=== PATIENT | female | born 1950 | race Caucasian/White ===

== ENCOUNTER 2022-03-05 12:58 | Inpatient (IN) | payer MEDICARE, BC ==
[~2022-03-05] VITALS: Ht 152.4 cm; Wt 63.5 kg
--- NOTE | 2022-03-05 13:00 | NUR ---
Patient brought in by ambulance, A/O time 4, no distress noted. Right hand heplock 20 gauze .
[2022-03-05 13:23] LABS: HEMATOCRIT 36.9 % (31.2-41.9); MEAN CORPUSCULAR HEMOGLOBIN 30.7 uug (24.7-32.8); MEAN CORPUSCULAR VOLUME 91.1 fL (75.5-95.3); PLATELET COUNT (AUTO) 299 K/uL (179-408)
[2022-03-05] MEDS ORDERED: OXYC10TA59 PO (13:36)
[2022-03-05] MEDS ORDERED: CLON1TAB PO (13:36)
[2022-03-05 13:40] LABS: BILIRUBIN,DIRECT 0.1 mg/dL (0.0-0.2); BILIRUBIN,TOTAL 0.4 mg/dL (0.2-1.0); CREATININE 0.8 mg/dL (0.6-1.3); POTASSIUM 3.7 mmol/L (3.5-5.1); TOTAL PROTEIN, SERUM 6.6 g/dL (6.4-8.2)
[2022-03-05] MEDS ORDERED: OXYCODONE/APAP 5-325 MG TABLET PO ONE ×2 (16:45→22:45)
[2022-03-05] MEDS ORDERED: OXYCODONE/APAP 5-325 MG TABLET ONE ×2 (16:55→22:43)
--- NOTE | 2022-03-05 16:57 | NUR ---
Spoke to Jyothi at [facility], awaiting call back for update/follow up.
--- NOTE | 2022-03-05 19:25 | NUR ---
Report recieved from Kiana HOSKINS.
--- NOTE | 2022-03-05 21:01 | NUR ---
Spoke to Delivery Crew Member, Domenica who states no beds are available at this time and will call back if beds become available.
[2022-03-06] MEDS ORDERED: OXYCODONE/APAP 5-325 MG TABLET PO ONE ×2 (03:30→08:00)
[2022-03-06] MEDS ORDERED: OXYCODONE/APAP 5-325 MG TABLET ONE ×2 (03:43→08:01)
--- NOTE | 2022-03-06 04:18 | NUR ---
Cuco from [facility] called to inform that there are still not beds avaliable for patient to transfer.
--- NOTE | 2022-03-06 06:29 | NUR ---
Spoke to Irena HOSKINS from OR regarding patient's wishes to be transferred to have surgery at [facility]. She confirmed that she will inform Dr. Kaur of the patient's wishes and to cancel the surgrey for 1300 today.
--- NOTE | 2022-03-06 07:12 | NUR ---
Change of shift report given to Mallorie HOSKINS.
[2022-03-06] MEDS ORDERED: IV D5 1/2 NS 1000 ML 1,000 ML IV ONE (07:45)
[2022-03-06] MEDS ORDERED: HYDROCODONE/APAP 5-325MG TABLET PO ONE (08:00)
--- NOTE | 2022-03-06 08:38 | NUR ---
called [facility] and spoke to house shani [place]a, states there is no bed availiable at this time. will call me back with bed #
[2022-03-06] MEDS ORDERED: MORPHINE SULFATE 2 MG/1 ML DISP.SYRIN IV PRN (12:00)
[2022-03-06] MEDS ORDERED: ONDANSETRON 4 MG/2 ML VIAL IV PRN (12:00)
[2022-03-06] MEDS ORDERED: BUPIVACAINE 0.25% 30 ML VIAL ONE (12:07)
--- NOTE | 2022-03-06 12:10 | NUR ---
koch catheter inserted per orders, 14f, tolerated. draining clear yellow urine. pt resting comfortably in bed.
--- NOTE | 2022-03-06 12:34 | NUR ---
aprox 1220 patient was taken to OR by or nurses. pt has all her belongings with her.
[2022-03-06 13:10] LABS: *BILIRUBIN,URIN NEGATIVE (NEGATIVE); *BLOOD, URINE NEGATIVE (NEGATIVE); *CLARITY,URINE CLEAR (CLEAR); *COLOR,URINE YELLOW (YELLOW); *KETONES,URINE NEGATIVE (NEGATIVE); *UROBILINOGEN,URINE 0.2 E.U./dl (NORMAL); LEUKOCYTE ESTERASE ,URINE NEGATIVE (NEGATIVE); NITRITE, URINE NEGATIVE (NEGATIVE); PH,URINE 5.5 (5.0-8.0); UGLUCOSE TRACE (NEGATIVE)
[2022-03-06] MEDS ORDERED: FENTANYL CITRATE 100 MCG/2 ML AMPUL ONE (13:27)
[2022-03-06] MEDS ORDERED: MIDAZOLAM HCL 2 MG/2 ML VIAL ONE (13:27)
[2022-03-06] MEDS ORDERED: ROCURONIUM BROMIDE 50 MG/5 ML VIAL ONE (13:28)
[2022-03-06 14:14] LABS: BACTERIA,URINE NONE SEEN /HPF (NONE SEEN); SQUAMOUS EPITHELIAL CELL,UR NONE SEEN /HPF (NONE SEEN); WBC,URINE NONE SEEN /HPF (0-3)
[2022-03-06] MEDS ORDERED: GLYCOPYRROLATE 0.2 MG/ML VIAL IJ ONE (15:10)
[2022-03-06] MEDS ORDERED: CEFAZOLIN 1 G VIAL IM ONE (15:10)
[2022-03-06] MEDS ORDERED: SEVOFLURANE 250 ML BOTTLE IH ONE (15:10)
[2022-03-06] MEDS ORDERED: METOCLOPRAMIDE HCL 10 MG/2 ML VIAL IV ONE (15:10)
[2022-03-06] MEDS ORDERED: ONDANSETRON 4 MG/2 ML VIAL IV ONE (15:10)
[2022-03-06] MEDS ORDERED: PROPOFOL 200 MG/20 ML BOTTLE IV ONE (15:10)
[2022-03-06] MEDS ORDERED: LIDOCAINE-MPF 2% 5 ML VIAL IJ ONE (15:10)
[2022-03-06] MEDS ORDERED: NEOSTIGMINE METHYLSULFATE 10 MG/10 ML VIAL IM ONE (15:10)
[2022-03-06] MEDS ORDERED: HYDROCODONE/APAP 5-325MG TABLET PO PRN (15:45)
--- NOTE | 2022-03-06 16:00 | NUR ---
REPORT RECEIVED FROM CHILD MONITOR REFUGIO Samuel PT IS DIRECT ADMIT FROM OR. PT UNDERGONE ORIF RIGHT HIP. PT DENIES ANY PAIN EXCEPT SURGERY SITE; PT AO X4. NO SOB; AFEBRILE. VITALS WNL. NO ACUTE DISTRESS NOTED. PT WILL BE ADMITTED TO [facility] FLOOR RM 304.
[2022-03-06] MEDS ORDERED: ONDANSETRON 4 MG/2 ML VIAL ONE (16:06)
[2022-03-06] MEDS ORDERED: HYDROMORPHONE 1 MG/1 ML DISP.SYRIN ONE (16:07)
[2022-03-06 17:15] VITALS: BP 124/58
[2022-03-06] MEDS: HYDROCODONE/APAP 10-325 MG TABLET PO PRN ×2 (18:33→22:34)
[2022-03-06] MEDS: ENOXAPARIN SODIUM 40 MG/0.4 ML DISP.SYRIN SQ SCH (19:27)
[2022-03-06] MEDS: IV NS 1000 ML 1,000 ML IV PRN (19:27)
[2022-03-06 20:00] VITALS: BP 125/60
--- NOTE | 2022-03-06 20:00 | NUR ---
received patient in bed alert oriented, speak Macanese but understand vietnamese, no sob no chest pain, at bedside, able to moved r feet, color wnl, given IS as ordered, cont to monitor.
[2022-03-06] MEDS: CEFAZOLIN 1 G in IV DEXTROSE 5% 50 ML IV SCH (21:20)
[2022-03-07 04:00] VITALS: BP 104/54
--- NOTE | 2022-03-07 04:26 | NUR ---
Patient awake complain of pain /10 at this time, given Narco 5/325 but still complain of pain, will medicate for breakthrough pain, patient uses bedpan for bowel eliminations, koch cath patent, dressing on right hip intact, continue on ice pack for pain/swelling cont to monitor.
--- NOTE | 2022-03-07 05:00 | NUR ---
Patient still has 8/10 pain on r hip given morphine 2mg for breakthrough pain.
[2022-03-07] MEDS: CEFAZOLIN 1 G in IV DEXTROSE 5% 50 ML IV SCH (05:01)
[2022-03-07 06:24] LABS: HEMATOCRIT 24.8 % (31.2-41.9); MEAN CORPUSCULAR HEMOGLOBIN 31.3 uug (24.7-32.8); MEAN CORPUSCULAR VOLUME 91.8 fL (75.5-95.3); PLATELET COUNT (AUTO) 191 K/uL (179-408)
[2022-03-07 06:33] LABS: CREATININE 0.8 mg/dL (0.6-1.3); MAGNESIUM 1.6 mg/dL (1.8-2.4); PHOSPHOROUS 3.1 mg/dL (2.5-4.9); POTASSIUM 3.4 mmol/L (3.5-5.1)
--- NOTE | 2022-03-07 07:48 | NUR ---
Alert, oriented x 4, using IS. IVF infusing. Denies right hip pain at this time.
[2022-03-07] MEDS: HYDROCODONE/APAP 10-325 MG TABLET PO PRN (08:50)
[2022-03-07] MEDS: ENOXAPARIN SODIUM 40 MG/0.4 ML DISP.SYRIN SQ SCH (08:50)
--- NOTE | 2022-03-07 09:00 | NUR ---
PT eval done. OOB with FWW
[2022-03-07] MEDS ORDERED: POTASSIUM CHLORIDE 20 MEQ TAB.PRT.SR PO ONE (09:15)
[2022-03-07] MEDS: MAGNESIUM SULFATE/D5W 100 ML IV SCH ×2 (09:54→11:01)
[2022-03-07] MEDS: IV NS 1000 ML 1,000 ML IV PRN (09:54)
[2022-03-07 12:00] VITALS: BP 114/45
[2022-03-07] MEDS: OXYCODONE HCL 5 MG TABLET PO PRN ×4 (12:49→21:15)
--- NOTE | 2022-03-07 13:00 | NUR ---
Pain medication changed to Oxycodone 5 mg with relief. OT eval done
--- NOTE | 2022-03-07 14:30 | NUR ---
OOB with PT, ambulated outside of the room with FWW
[2022-03-07 16:31] VITALS: BP 107/52
--- NOTE | 2022-03-07 17:00 | NUR ---
Reports of pain. Oxycodone 5 mg po given with relief.
--- NOTE | 2022-03-07 19:00 | NUR ---
RECD PT IN BED, ALERT,ORIENTEDX4,RESTING QUIETLY.NO ACUTE DISTRESS NOTED. NEDDS ATTENDED TO.RT. HIP DRESSING INTACT AND DRY, SKIN WARM TO TOUCH, NO BLEEDING NOTED,
[2022-03-07 20:00] VITALS: BP 127/65
--- NOTE | 2022-03-07 21:15 | NUR ---
COMPLAINING OF RT HIP PAIN, ICE PACK APPLIED TO RT,HIP.REPOSITIONED FOR COMFORT.CIRC. AND NEUROVASCULAR CHECH DONE, ABLE TO WIGGLE TOES, MEDICATED W/ OXYIR 10 MG P.O.,RELIF AFFORDED, HS CARE RENDERED,DUE MEDS GIVEN
--- NOTE | 2022-03-08 00:56 | NUR ---
AT THIS TIME PT IS IN A LOT OF SHARP PAIN,SKILLED ASSESSMENT DONE, OPERATIVE SITE STILL W/ DRY DRESSING.VITAL SIGNS W/I NORMAL LIMITS,PT STATED THAT THE PAIN THIS TIME IS SHARP , REPOSITIONED, ICE PACK APPLIED TO OP SITE, NO SIGNS AND SYMPTOMS OF INFLAMMATION NOTED.DVT PUMPS IN TIAGO LOWER EXTREMITIES.DRUM OPERATOR FERNANDO GODFREY NOTIFIED AND ORDERED TIAGO LE VENOUS DOPPLER STUDY,
[2022-03-08] MEDS: OXYCODONE HCL 5 MG TABLET PO PRN ×4 (01:33→21:28)
--- NOTE | 2022-03-08 01:33 | NUR ---
VITALS TAKEN AND RECORDED.AFEBRILE, USING INCENTIVE SPIROMETER. .SLEP ON AND OFF, DEEP BREATHING EXERCISE, TAUGHT. VERY RECEPTIVE TO INSTRUCTIONS.
[2022-03-08] MEDS: IV NS 1000 ML 1,000 ML IV PRN ×2 (02:31→20:05)
[2022-03-08 04:00] VITALS: BP 130/68
--- NOTE | 2022-03-08 07:08 | NUR ---
ENDORSED TO AM NURSE IN APPARENTLY FAIR CONDITION. PAIN ON RIGHT HIP A LOT BETTER.CIRC AND NEURO VASC CHECK DONE.W./I LIMITS.
[2022-03-08 07:40] LABS: HEMATOCRIT 22.1 % (31.2-41.9); MEAN CORPUSCULAR HEMOGLOBIN 31.2 uug (24.7-32.8); MEAN CORPUSCULAR VOLUME 91.2 fL (75.5-95.3); PLATELET COUNT (AUTO) 173 K/uL (179-408)
[2022-03-08 07:50] LABS: CREATININE 0.6 mg/dL (0.6-1.3); MAGNESIUM 1.9 mg/dL (1.8-2.4); POTASSIUM 3.6 mmol/L (3.5-5.1)
[2022-03-08] MEDS: ENOXAPARIN SODIUM 40 MG/0.4 ML DISP.SYRIN SQ SCH (08:46)
[2022-03-08 11:55] VITALS: BP 108/45
--- NOTE | 2022-03-08 14:29 | NUR ---
patient alert, oriented x4, no sob, respirations are even nonlabored, skin warm and dry to touch, dressing intact to right hip, no active bleeding noted. patient ambulated with PT, tolerated well. discharging to ARU unit. Addendum: 03/08/22 at 2307 by ALICIA MELENDEZ RN RN patient discharge is held per dr ness due to patient needs blood transfusion.
--- NOTE | 2022-03-08 15:50 | NUR ---
koch discontinued, patient brought to bedside commode, patient voided large amount of urine.
[2022-03-08 16:00] VITALS: BP 113/60
[2022-03-08] MEDS ORDERED: BISACODYL 5 MG TABLET.DR PO PRN (16:00)
[2022-03-08] MEDS ORDERED: SENNOSIDES 1 TABLET PO SCH ×3 (16:45→21:00)
[2022-03-08 20:33] VITALS: BP 121/60
--- NOTE | 2022-03-08 22:56 | NUR ---
Day time laboratory supervisor told the this field underwriter, patient needs second draw which will be available at 10pm, spoke to lab at 10pm said there is no one available in the lab to release the blood. so blood transfusion will be in the am, paged dr ness to let him know.
--- NOTE | 2022-03-08 23:08 | NUR ---
patient is alert, oriented x4, no sob, respirations are ever nonlabored, skin warm and dry to touch, no acute distress noted. Addendum: 03/08/22 at 4968 by ALICIA MELENDEZ RN, RN dr ness is aware
[2022-03-09] VITALS (8 sets, daily range): BP systolic 105–119; BP diastolic 46–86
--- NOTE | 2022-03-09 00:11 | NUR ---
patient refuses to turn on her side, every time try to turn patient to side, patient stated " no my doctor told me not to turn" reinforced teaching, still patient refused to turn and reposition to the side, patient stays on her back most of the time. risks and benefits of skin breakdown explained. patient verbalized understanding of it.
[2022-03-09] MEDS: OXYCODONE HCL 5 MG TABLET PO PRN ×2 (01:43→15:03)
--- NOTE | 2022-03-09 06:50 | NUR ---
no acute distress noted during shift
[2022-03-09] MEDS: ENOXAPARIN SODIUM 40 MG/0.4 ML DISP.SYRIN SQ SCH (08:43)
--- NOTE | 2022-03-09 16:30 | NUR ---
Prepared for discharge. Transfusion with 1 unit prbc completed. Voided qs and large, soft formed bm on the commode.
--- NOTE | 2022-03-09 18:10 | NUR ---
Discharged to ARU. No c/o discomfort.
[2022-03-09] MEDS ORDERED: OXYC10TA49 PO (21:14)
[2022-03-09] MEDS ORDERED: ENOX40DI SQ (21:14)
[2022-03-09] MEDS ORDERED: OXYC5TAB3 PO (21:14)
== END 2022-03-09 17:45 | DRG 481 ==
LOC: ER 12:58 → TRANSITION 03-06 12:20 → MEDSURG3 03-06 16:04
PROC: 0QS606Z Reposition Right Upper Femur with Intramedullary Internal Fixation Device, Open Approach (ICD-10-PCS; principal; 2022-03-06)
PROC: 30233N1 Transfusion of Nonautologous Red Blood Cells into Peripheral Vein, Percutaneous Approach (ICD-10-PCS; 2022-03-09)
DX: S72.141A Displaced intertrochanteric fracture of right femur, initial encounter for closed fracture (principal); D62 Acute posthemorrhagic anemia; G47.00 Insomnia, unspecified; I10 Essential (primary) hypertension; Z20.822 Contact with and (suspected) exposure to COVID-19; W18.30XA Fall on same level, unspecified, initial encounter; Y93.9 Activity, unspecified; Y92.009 Unspecified place in unspecified non-institutional (private) residence as the place of occurrence of the external cause; Z96.653 Presence of artificial knee joint, bilateral; R94.31 Abnormal electrocardiogram [ECG] [EKG]; M19.90 Unspecified osteoarthritis, unspecified site
CPT/HCPCS: 36415; 71045; 73502; 73503; 83735; 84100; 85025; 85730; 86850; 86900; 86901; 86920; 93005; A4663; C1713; G0378; J0690; J1170; J1650; J2250; J2270; J2405; J2765; J3010; J3475; J3490; J7040; P9016

== ENCOUNTER 2022-03-09 20:23 | Inpatient (IN) | payer MEDICARE, BC ==
[~2022-03-09] VITALS: Ht 152.4 cm; Wt 63.5 kg
--- NOTE | 2022-03-09 19:00 | NUR ---
Admitted patient from [facility]. Routine admission care done. Plan of care initiated.
[~2022-03-09 20:23] MED LIST: CLON1TAB PO; OXYC10TA59 PO
[2022-03-09 20:49] VITALS: BP 124/50
[2022-03-09] MEDS ORDERED: OXYC10TA49 PO (21:14)
[2022-03-09] MEDS ORDERED: ENOX40DI SQ (21:14)
[2022-03-09] MEDS ORDERED: OXYC5TAB3 PO (21:14)
[2022-03-09] MEDS ORDERED: OXYCODONE HCL 5 MG TABLET PO PRN ×2 (22:15→22:30)
[2022-03-09] MEDS ORDERED: SENNOSIDES/DOCUSATE SODIUM TABLET PO SCH (22:30)
[2022-03-09] MEDS: OXYCODONE HCL 5 MG TABLET PO PRN (22:36)
[2022-03-09] MEDS: SENNOSIDES 1 TABLET PO SCH (22:36)
--- NOTE | 2022-03-09 23:36 | NUR ---
Medicated with OxyIR 10 mg as needed and ordered for scale of pain 10/10 on the right hip. Will monitor.
[2022-03-10 04:31] VITALS: BP 113/62
--- NOTE | 2022-03-10 06:45 | NUR ---
End of shift report: VS stable. Medicated once for pain with relief. No further complaint presented. Slept good. All needs attended and met. No significant event reported all night. Continue current rehab plan of care.
[2022-03-10 08:02] VITALS: BP 118/50
--- NOTE | 2022-03-10 08:10 | NUR ---
NSG:Received patient lying in bed. pleasant upon approach. VS stable. Medicated once for pain before patient going for excessive with PT. compliant with routine meds. No further complaint presented at this time. Continue current rehab plan of care. call light w/in reach.
[2022-03-10] MEDS: OXYCODONE HCL 5 MG TABLET PO PRN ×2 (09:14→20:36)
[2022-03-10] MEDS: ENOXAPARIN SODIUM 40 MG/0.4 ML DISP.SYRIN SQ SCH (09:18)
[2022-03-10] MEDS: REMEDY ESSENTIAL ZINC PASTE 113 GM TOP SCH ×2 (09:57→20:36)
--- NOTE | 2022-03-10 14:00 | NUR ---
NSG: Medicated with OxyIR 5 mg as needed and ordered for scale on the right hip. continue monitoring for safety.
[2022-03-10 16:27] VITALS: BP 114/53
[2022-03-10 20:30] VITALS: BP 123/60
[2022-03-10] MEDS: SENNOSIDES 1 TABLET PO SCH (20:36)
[2022-03-11 04:10] VITALS: BP 99/46
[2022-03-11 06:11] LABS: HEMATOCRIT 27.9 % (31.2-41.9); MEAN CORPUSCULAR HEMOGLOBIN 30.1 uug (24.7-32.8); MEAN CORPUSCULAR VOLUME 88.4 fL (75.5-95.3); PLATELET COUNT (AUTO) 244 K/uL (179-408)
--- NOTE | 2022-03-11 08:00 | NUR ---
resting in bed, medicated wisth oxir as routine before scheduled PT regimen, pleasant and cooperative, needs attended and safety measures maintained, no distress noted, righ thip/thigh surgical incisions with bordered dsg- dry and intact
[2022-03-11] MEDS: OXYCODONE HCL 5 MG TABLET PO SCH ×2 (08:28→13:13)
[2022-03-11] MEDS: ENOXAPARIN SODIUM 40 MG/0.4 ML DISP.SYRIN SQ SCH (08:29)
[2022-03-11] MEDS: REMEDY ESSENTIAL ZINC PASTE 113 GM TOP SCH ×2 (08:29→20:35)
[2022-03-11 08:34] VITALS: BP 117/48
[2022-03-11] MEDS ORDERED: OXYCODONE HCL 5 MG TABLET PO SCH ×2 (13:00→21:00)
[2022-03-11 16:31] VITALS: BP 111/63
--- NOTE | 2022-03-11 18:32 | NUR ---
pain meds given as ordered routinely- no adverse side effects noted, all needs attended and met, call light within reach,
[2022-03-11 20:00] VITALS: BP 109/45
[2022-03-11] MEDS: SENNOSIDES 1 TABLET PO SCH (20:35)
[2022-03-12 04:00] VITALS: BP 135/58
[2022-03-12 07:53] VITALS: BP 118/63
[2022-03-12] MEDS: OXYCODONE HCL 5 MG TABLET PO SCH ×2 (08:21→12:59)
[2022-03-12] MEDS: ENOXAPARIN SODIUM 40 MG/0.4 ML DISP.SYRIN SQ SCH (08:22)
[2022-03-12] MEDS: REMEDY ESSENTIAL ZINC PASTE 113 GM TOP SCH ×2 (08:26→22:01)
--- NOTE | 2022-03-12 08:36 | NUR ---
SHIFT NOTES; PT IS ALERT AND ORIENTED X4 PT WAS GIVEN MEDICATION GIVEN ORDERED NO SIGNS OF ADVERSE REACTION FROM MEDICATION PT GOES TO BATHROOM WITH ASSIST AND REQUESTED THAT HER OXY IR TO BE GIVEN IN THE AM THE SMALL DOSAGE 5 MG INSTEADED OF 10 MG DOSE AT 0900 ENDORSED TO AM NURSE.
[2022-03-12] MEDS: ENSURE ENLIVE (VAN) 240 ML LIQUID PO SCH (12:32)
--- NOTE | 2022-03-12 13:27 | NUR ---
INDIVIDUALIZED PLAN OF CARE
--- NOTE | 2022-03-12 14:05 | NUR ---
INTERDISCIPLINARY TEAM CONFERENCE
[2022-03-12 16:11] VITALS: BP 110/61
[2022-03-12 20:00] VITALS: BP 108/72
[2022-03-12] MEDS ORDERED: OXYCODONE HCL 5 MG TABLET PO SCH (21:00)
[2022-03-12] MEDS: SENNOSIDES 1 TABLET PO SCH (22:01)
--- NOTE | 2022-03-13 01:00 | NUR ---
RECD PT IN BED , RESTING QUIETLY. NO ACUTE DISTRESS NOTED. BEEN PLEASANT AND COOPERATIVE
[2022-03-13 04:00] VITALS: BP 112/51
[2022-03-13 07:38] VITALS: BP 122/59
--- NOTE | 2022-03-13 07:47 | NUR ---
PATIENT IN BED, SITTING UP, AWAKE. NO RESPIRATORY DISTRESS NOTED, PATIENT DENIES ANY PAIN. ORAL FLUIDS OFFERED AND TAKEN WELL. ENCOURAGED TO USE CALL LIGHT FOR HELP EVERY TIME NEEDED WITH GOOD UNDERSTANDING.
[2022-03-13] MEDS: ENOXAPARIN SODIUM 40 MG/0.4 ML DISP.SYRIN SQ SCH (08:37)
[2022-03-13] MEDS ORDERED: OXYCODONE HCL 5 MG TABLET PO SCH (09:00)
[2022-03-13] MEDS: ENSURE ENLIVE (VAN) 240 ML LIQUID PO SCH (09:17)
[2022-03-13] MEDS: REMEDY ESSENTIAL ZINC PASTE 113 GM TOP SCH ×2 (09:18→20:31)
--- NOTE | 2022-03-13 09:29 | NUR ---
0900-DUE MEDICATION ADMINISTERED ORDERED, NO ASE NOTED; PATIENT DENIES GI DISTRESS, ABLE TO EAT 100% OF BREAKFAST, ORAL FLUIDS TAKEN WELL. ASSISTED TO THE BATHROOM, PATIENT ABLE TO ACTIVELY PARTICIPATE IN HER CARE, COMPLIANT WITH TREATMENT AND MEDICATION. ASSIST NEEDED.
--- NOTE | 2022-03-13 13:10 | NUR ---
PATIENT WAS REASSESSED BY Dr VARGAS REGARDING MEDICATION OXYCODONE, PER MD PATIENT TO TAKE 10mg FOLLOWS: 10mg AT 0900, 10mg AT 1300 AND 10mg AT HS. ORDER NOTED AND PHARMACY NOTIFIED.
--- NOTE | 2022-03-13 13:18 | NUR ---
1317-OXYCODONE 10mg ONLY ADMINISTERED, ORDERED BY ... AND NOT 5mg, PHARMACY INFORMED.
[2022-03-13] MEDS: OXYCODONE HCL 5 MG TABLET PO SCH ×2 (13:30→20:27)
--- NOTE | 2022-03-13 13:54 | NUR ---
1330-Oxycodone scheduled at this time, already given at 1317 as ordered by .
[2022-03-13 15:07] VITALS: BP 113/50
--- NOTE | 2022-03-13 19:00 | NUR ---
PT WAS IN THE BATHROOM, TRYING TO HAVE A BOWEL MOVEMENT. FELT CONSTIPATED. MD NOTIFIED, DR. Staton ORDERED MILK OF MAG., OFFERED PRUNE JUICE AND INCREASED FLUID INTAKE. RESTED FAIRLY WELL. NO DISTRESS.
[2022-03-13 20:00] VITALS: BP 139/59
[2022-03-13] MEDS: SENNOSIDES 1 TABLET PO SCH (20:27)
[2022-03-13] MEDS ORDERED: MAGNESIUM HYDROXIDE 30 ML LIQUID UDC PO ONE (20:45)
--- NOTE | 2022-03-13 22:00 | NUR ---
HAD GOOD SIZE BOWEL MOVEMENT. HS CARE RENDERED. NEEDS ATTENDED TO.
[2022-03-14 04:00] VITALS: BP 146/65
--- NOTE | 2022-03-14 06:06 | NUR ---
UNEVENTFUL NIGHT. VOIDED FREELY WELL. NO COMPLAINTS PRESENTED.
--- NOTE | 2022-03-14 06:40 | NUR ---
LOW GRADE FEVER 99.4, TAKING FLUIDS WELL, ROOM TEMP REGULATED, KEPT COOL AND COMFORTABLE.URINE COLOR WHITNEY, NO SEDIMENTS,.
[2022-03-14 07:35] VITALS: BP 127/72
[2022-03-14] MEDS: OXYCODONE HCL 5 MG TABLET PO SCH ×3 (08:51→20:32)
[2022-03-14] MEDS: ENSURE ENLIVE (VAN) 240 ML LIQUID PO SCH (08:53)
[2022-03-14] MEDS: ENOXAPARIN SODIUM 40 MG/0.4 ML DISP.SYRIN SQ SCH (08:56)
[2022-03-14] MEDS: REMEDY ESSENTIAL ZINC PASTE 113 GM TOP SCH ×2 (08:57→20:30)
[2022-03-14 15:50] VITALS: BP 113/51
[2022-03-14 20:00] VITALS: BP 126/67
[2022-03-14] MEDS: SENNOSIDES 1 TABLET PO SCH (20:33)
[2022-03-15 08:00] VITALS: BP 124/60
[2022-03-15] MEDS: OXYCODONE HCL 5 MG TABLET PO SCH ×3 (09:03→20:55)
[2022-03-15] MEDS: REMEDY ESSENTIAL ZINC PASTE 113 GM TOP SCH ×2 (09:04→20:55)
[2022-03-15] MEDS: ENSURE ENLIVE (VAN) 240 ML LIQUID PO SCH (09:05)
[2022-03-15] MEDS: ENOXAPARIN SODIUM 40 MG/0.4 ML DISP.SYRIN SQ SCH (09:05)
[2022-03-15 15:04] VITALS: BP 105/54
[2022-03-15] MEDS: SENNOSIDES 1 TABLET PO SCH (20:54)
[2022-03-15 21:02] VITALS: BP 110/48
[2022-03-16 04:05] VITALS: BP 115/51
[2022-03-16 06:45] LABS: HEMATOCRIT 30.2 % (31.2-41.9); MEAN CORPUSCULAR HEMOGLOBIN 30.2 uug (24.7-32.8); MEAN CORPUSCULAR VOLUME 89.4 fL (75.5-95.3); PLATELET COUNT (AUTO) 473 K/uL (179-408)
[2022-03-16 07:17] LABS: THYROID STIMULATING HORMONE 2.442 mIU/mL (0.358-3.740)
[2022-03-16 07:36] LABS: BILIRUBIN,TOTAL 0.6 mg/dL (0.2-1.0); CREATININE 0.8 mg/dL (0.6-1.3); MAGNESIUM 2.2 mg/dL (1.8-2.4); PHOSPHOROUS 4.7 mg/dL (2.5-4.9); POTASSIUM 4.1 mmol/L (3.5-5.1); TOTAL PROTEIN, SERUM 6.2 g/dL (6.4-8.2)
[2022-03-16 08:00] VITALS: BP 118/59
[2022-03-16] MEDS: ENSURE ENLIVE (VAN) 240 ML LIQUID PO SCH (09:00)
[2022-03-16] MEDS: OXYCODONE HCL 5 MG TABLET PO SCH ×3 (09:47→20:50)
[2022-03-16] MEDS: ENOXAPARIN SODIUM 40 MG/0.4 ML DISP.SYRIN SQ SCH (09:49)
[2022-03-16] MEDS: REMEDY ESSENTIAL ZINC PASTE 113 GM TOP SCH ×2 (11:23→20:51)
[2022-03-16] MEDS: FERROUS SULFATE 325 MG TABEC PO SCH (11:27)
[2022-03-16] MEDS: MULTIVITAMINS,THERAPEUTIC TABLET PO SCH (11:27)
[2022-03-16 16:56] VITALS: BP 104/55
[2022-03-16 20:02] VITALS: BP 104/46
[2022-03-16] MEDS: SENNOSIDES 1 TABLET PO SCH (20:49)
[2022-03-17 04:20] VITALS: BP 109/55
[2022-03-17 07:31] VITALS: BP 115/55
[2022-03-17] MEDS: ENOXAPARIN SODIUM 40 MG/0.4 ML DISP.SYRIN SQ SCH (08:43)
[2022-03-17] MEDS: OXYCODONE HCL 5 MG TABLET PO SCH ×3 (08:45→20:22)
[2022-03-17] MEDS: MULTIVITAMINS,THERAPEUTIC TABLET PO SCH (08:46)
[2022-03-17] MEDS: ENSURE ENLIVE (VAN) 240 ML LIQUID PO SCH (08:46)
[2022-03-17] MEDS: FERROUS SULFATE 325 MG TABEC PO SCH (08:46)
[2022-03-17] MEDS: REMEDY ESSENTIAL ZINC PASTE 113 GM TOP SCH ×2 (12:25→20:22)
[2022-03-17 16:00] VITALS: BP 114/45
[2022-03-17 20:00] VITALS: BP 115/45
[2022-03-17] MEDS: SENNOSIDES 1 TABLET PO SCH (20:22)
[2022-03-18 04:00] VITALS: BP 120/52
[2022-03-18 07:44] VITALS: BP 105/51
--- NOTE | 2022-03-18 08:32 | NUR ---
RECEIVED PT ALERT AND ORIENT X4 AM NURSE TOOK OFF HIP DRESSING AND DIDN'T REPLACE THEM. CLEANED AND CHANGED SITE NO SIGNS OF DRAINAGE NOTED, PT POSSIBLE D/C INFORMED AM NURSE . PT WAS GIVEN MEDICATION NO SIGNS OF ADVERSE REACTION NOTED. WILL ENDORSE TO AM NURSE.
[2022-03-18] MEDS: OXYCODONE HCL 5 MG TABLET PO SCH ×3 (08:38→20:54)
[2022-03-18] MEDS: FERROUS SULFATE 325 MG TABEC PO SCH (08:38)
[2022-03-18] MEDS: MULTIVITAMINS,THERAPEUTIC TABLET PO SCH (08:39)
[2022-03-18] MEDS: ENOXAPARIN SODIUM 40 MG/0.4 ML DISP.SYRIN SQ SCH (08:44)
[2022-03-18] MEDS: ENSURE ENLIVE (VAN) 240 ML LIQUID PO SCH (09:35)
[2022-03-18] MEDS: REMEDY ESSENTIAL ZINC PASTE 113 GM TOP SCH ×2 (09:36→20:54)
--- NOTE | 2022-03-18 10:23 | NUR ---
0730-PATIENT IN BED, SITTING AT BEDSIDE AT THIS TIME, A/OX4, DENIES ANY PAIN. ORAL FLUIDS TAKEN OFFERED, NO RESPIRATORY DISTRESS/SOB NOTED , ON R/A AND EMILY. WELL. 0930-ALL DUE MEDICATIONS ADMINISTERED WITH NO ASE NOTED; PATIENT STILL EATING BREAKFAST AT THIS TIME, DENIES GI DISCOMFORT. ASSISTED TO THE RESTROOM PER REQUEST/NEEDED. PATIENT COOPERATIVE WITH HER CARE AND TREATMENT. ENCOURAGED TO USE CALL LIGHT FOR HELP EVERY TIME NEEDED/.
[2022-03-18 16:39] VITALS: BP 102/51
[2022-03-18 20:00] VITALS: BP 103/45
[2022-03-18] MEDS: ATORVASTATIN 10 MG TABLET PO SCH (20:53)
[2022-03-18] MEDS: SENNOSIDES 1 TABLET PO SCH (20:54)
--- NOTE | 2022-03-19 01:08 | NUR ---
2100-DUE MEDICATION ADMINISTERED WITH NO ASE NOTED. PATIENT IN BED, USING HER TABLET. PATIENT IN GOOD STABLE CONDITIONS, NO C/O ANY DISCOMFORT. CALL LIGHT WITHIN REACH. 0100-PATIENT SLEEPING COMFORTABLY, NO RESPIRATORY DISTRESS, ON R/A AND EMILY. WELL. SKIN W/D TO THE TOUCH, AFEBRILE. ABLE TO WAKE UP, ORAL FLUIDS OFFERED EMILY. AND TAKEN WELL. SAFETY MEASURES IN PLACE AND CALL LIGHT AT REACH. ROUTINE ROUNDS AND FREQUENT VISUAL CHECKS DONE.
[2022-03-19 04:00] VITALS: BP 104/50
[2022-03-19 07:46] VITALS: BP 102/51
[2022-03-19] MEDS: OXYCODONE HCL 5 MG TABLET PO SCH ×3 (08:19→21:10)
[2022-03-19] MEDS: FERROUS SULFATE 325 MG TABEC PO SCH (08:19)
[2022-03-19] MEDS: ENSURE ENLIVE (VAN) 240 ML LIQUID PO SCH (08:20)
[2022-03-19] MEDS: MULTIVITAMINS,THERAPEUTIC TABLET PO SCH (08:20)
[2022-03-19] MEDS: ENOXAPARIN SODIUM 40 MG/0.4 ML DISP.SYRIN SQ SCH (08:21)
[2022-03-19] MEDS: REMEDY ESSENTIAL ZINC PASTE 113 GM TOP SCH ×2 (09:13→21:10)
[2022-03-19 15:47] VITALS: BP 104/53
[2022-03-19 20:00] VITALS: BP 102/53
[2022-03-19] MEDS: ATORVASTATIN 10 MG TABLET PO SCH (21:10)
[2022-03-19] MEDS: SENNOSIDES 1 TABLET PO SCH (21:10)
[2022-03-20 04:00] VITALS: BP 111/44
[2022-03-20 07:59] VITALS: BP 113/71
[2022-03-20] MEDS: MULTIVITAMINS,THERAPEUTIC TABLET PO SCH (08:35)
[2022-03-20] MEDS: FERROUS SULFATE 325 MG TABEC PO SCH (08:35)
[2022-03-20] MEDS: OXYCODONE HCL 5 MG TABLET PO SCH ×3 (08:35→22:00)
[2022-03-20] MEDS: ENOXAPARIN SODIUM 40 MG/0.4 ML DISP.SYRIN SQ SCH (08:43)
[2022-03-20] MEDS: ENSURE ENLIVE (VAN) 240 ML LIQUID PO SCH (09:53)
[2022-03-20] MEDS: REMEDY ESSENTIAL ZINC PASTE 113 GM TOP SCH ×2 (09:54→21:00)
--- NOTE | 2022-03-20 11:23 | NUR ---
ORDERS TO REMOVE AYUSH RIGHT HIP AND APPLY STERI STRIPES PER DR KIRAN FROM [place] AND NOTED.
--- NOTE | 2022-03-20 12:00 | NUR ---
NOTED THAT PATIENT HAS DEMABOND ONLY NO AYUSH SEEN.DRY DRESSING INTACT WITH NO DRAINAGE AT THIS TIME.
[2022-03-20 16:32] VITALS: BP 118/45
--- NOTE | 2022-03-20 18:00 | NUR ---
RESTING AND COMFORTABLE AT THIS TIME.
[2022-03-20 20:00] VITALS: BP 117/56
[2022-03-20] MEDS: ATORVASTATIN 10 MG TABLET PO SCH (21:59)
[2022-03-20] MEDS: SENNOSIDES 1 TABLET PO SCH (22:00)
[2022-03-21 08:00] VITALS: BP 120/73
[2022-03-21] MEDS: MULTIVITAMINS,THERAPEUTIC TABLET PO SCH (08:32)
[2022-03-21] MEDS: OXYCODONE HCL 5 MG TABLET PO SCH ×2 (08:33→13:45)
[2022-03-21] MEDS: FERROUS SULFATE 325 MG TABEC PO SCH (08:33)
[2022-03-21] MEDS: ENOXAPARIN SODIUM 40 MG/0.4 ML DISP.SYRIN SQ SCH (08:39)
[2022-03-21] MEDS: ENSURE ENLIVE (VAN) 240 ML LIQUID PO SCH (09:10)
[2022-03-21] MEDS: REMEDY ESSENTIAL ZINC PASTE 113 GM TOP SCH (09:11)
--- NOTE | 2022-03-21 15:31 | NUR ---
3:15pm-Patient was discharged home, picked up by [facility] ambulance. All belongings given, belonging list completed; all discharge paperwork, physician orders/profile provided. Written education paper work provided. Patient left in good stable conditions, no c/o pain. No respiratory distress noted. Patient within her usual baseline status.
== END 2022-03-21 15:15 | disposition home health service (06) | DRG 560 ==
PROVIDERS: ADMIT Physical Medicine & Rehabilitation Pain Medicine; ATTEND Physical Medicine & Rehabilitation Pain Medicine
DX: S72.141D Displaced intertrochanteric fracture of right femur, subsequent encounter for closed fracture with routine healing (principal); D68.59 Other primary thrombophilia; M19.90 Unspecified osteoarthritis, unspecified site; R94.31 Abnormal electrocardiogram [ECG] [EKG]; G47.00 Insomnia, unspecified; D50.9 Iron deficiency anemia, unspecified; E78.5 Hyperlipidemia, unspecified; W18.30XD Fall on same level, unspecified, subsequent encounter
CPT/HCPCS: 36415; 73502; 83550; 83735; 84100; 84443; 85025; 97535-GO-CO; J1650